=== PATIENT | male | born 1955 | race Caucasian/White ===

== ENCOUNTER 2016-04-07 10:10 | Emergency (ER) | payer MEDICAID ==
[~2016-04-07] VITALS: Ht 188 cm; Wt 73.5 kg
[2016-04-07] MEDS ORDERED: MULT-1203 PO (11:21)
[2016-04-07] MEDS ORDERED: ATOR40TA28 PO (11:28)
[2016-04-07] MEDS ORDERED: ASPI81 PO (11:28)
[2016-04-07] MEDS ORDERED: DIPH25 PO (11:28)
[2016-04-07] MEDS ORDERED: NITR.4 SL (11:28)
[2016-04-07] MEDS ORDERED: CLOP75 PO (11:28)
[2016-04-07] MEDS ORDERED: AMLO-511 PO (11:28)
[2016-04-07] MEDS ORDERED: ALLO300 PO (11:28)
[2016-04-07] MEDS ORDERED: SILV20CR2 TP (11:28)
[2016-04-07] MEDS ORDERED: METO100XL PO (11:28)
[2016-04-07] MEDS ORDERED: SODIUM CHLORIDE 0.9% 1,000 ML IV ONE ×2 (14:45→17:30)
[2016-04-07 14:50] LABS: BASOPHILS % (AUTO) 0.6 % (0.0-2.0); EOSINOPHILS % (AUTO) 0.4 % (1.0-6.0); HEMATOCRIT 41.3 % (41-53); HEMOGLOBIN 13.8 g/dL (13.5-17.5); LYMPHOCYTES # (AUTO) 1.3 K/uL (1.0-4.8); LYMPHOCYTES % (AUTO) 10.6 % (22.0-44.0); MEAN CORPUSCULAR HEMOGLOBIN 34.3 pg (26.0-34.0); MEAN CORPUSCULAR HGB CONC 33.4 G/dL (31.0-37.0); MEAN CORPUSCULAR VOLUME 103 fL (80-100); MONOCYTES # (AUTO) 0.8 K/uL (0.1-1.0); MONOCYTES % (AUTO) 6.3 % (2.0-9.0); NEUTROPHILS # (AUTO) 10.2 K/uL (1.8-7.7); NEUTROPHILS % (AUTO) 82.1 % (40.0-70.0); RED BLOOD CELL COUNT(AUTO) 4.02 MIL/uL (4.50-5.90); RED CELL DISTRIBUTION WIDTH 12.8 % (11.5-14.5); WHITE BLOOD COUNT (AUTO) 12.4 K/uL (4.5-11.0)
[2016-04-07 14:58] LABS: APPEARANCE,URINE CLEAR (CLEAR); GLUCOSE, URINE (UA) NEGATIVE (NEGATIVE); KETONES,URINE TRACE mg/dL (NEGATIVE); LEUKOCYTE ESTERASE ,URINE NEGATIVE (NEGATIVE); OCCULT BLOOD,URINE NEGATIVE (NEGATIVE); PH,URINE 6.5 (5.0-8.0); PROTEIN,URINE TRACE (NEGATIVE)
[2016-04-07 14:59] LABS: ADD UA MICROSCOPIC NO
[2016-04-07 15:09] LABS: ANION GAP 9 mmol/L (8-16); CALCIUM, TOTAL 8.2 mg/dL (8.8-10.5); CARBON DIOXIDE 30 mmol/L (22-29); CHLORIDE 91 mmol/L (98-107); CREATININE 0.71 mg/dL (0.60-1.30); GLOMERULAR FILTR. RATE CALC > 60 mL/min (>60); POTASSIUM 3.1 mmol/L (3.5-5.1); SODIUM SERUM 130 mmol/L (136-145); UREA NITROGEN, BLOOD 8 mg/dL (7-18)
[2016-04-07 15:12] LABS: ALANINE AMINOTRANSFERASE 24 U/L (12-78); ALBUMIN 2.2 g/dL (3.4-5.0); ASPARTATE AMINOTRANSFERASE 48 U/L (15-37); BILIRUBIN,TOTAL 0.8 mg/dL (0.1-1.0); TOTAL PROTEIN, SERUM 6.2 g/dL (6.4-8.2)
[2016-04-07 15:37] LABS: RBC MORPHOLOGY COMMENT ABNORMAL RBC MORPH
[2016-04-07 15:42] LABS: PLATELET COUNT (AUTO) 148 K/uL (150-450)
[2016-04-07] MEDS ORDERED: POTASSIUM CHLORIDE 20 MEQ ER TABLET PO ONE (17:30)
[2016-04-07 18:10] VITALS: BP 116/76
== END 2016-04-07 18:35 | disposition home or self-care (01) ==
LOC: EMS 10:16
DX: R19.7 Diarrhea, unspecified (principal); E87.6 Hypokalemia; I25.2 Old myocardial infarction; I25.10 Atherosclerotic heart disease of native coronary artery without angina pectoris; I10 Essential (primary) hypertension; F17.200 Nicotine dependence, unspecified, uncomplicated; Z79.82 Long term (current) use of aspirin; Z88.8 Allergy status to other drugs, medicaments and biological substances; Z88.0 Allergy status to penicillin
CPT/HCPCS: 36415; 80053; 81003; 83690; 85025; 87045; 89055; 93005; 96360; 96361; 99285; J7030